=== PATIENT | male | born 1940 | race Caucasian/White ===

== ENCOUNTER 2017-05-13 17:30 | Emergency (ER) | payer OTHER ==
[~2017-05-13] VITALS: Ht 175.3 cm; Wt 85.0 kg
[2017-05-13] MEDS ORDERED: FURO-152 PO (17:34)
[2017-05-13] MEDS ORDERED: METHYLPREDNISOLONE SOD SUCC 125 MG/2 ML VIAL IV STA (18:22)
[2017-05-13] MEDS ORDERED: ASPIRIN 81MG TABLET PO STA (18:22)
[2017-05-13] MEDS ORDERED: IPRATROPIUM BROMIDE (0.02%) 0.5MG/2.5ML NEB HHN STA (18:22)
[2017-05-13] MEDS ORDERED: ALBUTEROL (0.083%) 2.5MG/3ML NEB HHN STA (18:22)
[2017-05-13] MEDS ORDERED: DEXTROSE 50% WATER 50ML SYRINGE IV ONE (18:30)
[2017-05-13 19:32] LABS: HEMATOCRIT. 32.2 % (42.0-52.0); HEMOGLOBIN. 10.7 g/dL (14.0-18.0); MEAN CORPUSCULAR HEMOGLOBIN 32.1 pg (28.0-32.0); MEAN CORPUSCULAR VOLUME 96.7 fL (80.0-94.0); MEAN PLATELET VOLUME 8.2 fl (7.4-10.4); PLATELET 187 x1000/uL (130-400); RED BLOOD CELL COUNT 3.33 mill/uL (4.7-6.1); RED CELL DISTRIBUTION WIDTH 19.3 % (11.6-14.6)
[2017-05-13 19:38] LABS: INR 1.4; PARTIAL THROMBOPLASTIN TIME 36.9 sec (23.4-31.0); PROTHROMBIN TIME 14.4 sec (9.4-11.6)
[2017-05-13 19:47] LABS: CHLORIDE 99 mEq/L (98-107)
[2017-05-13 19:49] LABS: TROPONIN I 0.02 ng/mL (0.00-0.04)
[2017-05-13 19:57] LABS: PLATELET ESTIMATE NORMAL
[2017-05-13 20:03] LABS: CLARITY URINE CLEAR (CLEAR); COLOR URINE YELLOW (YELLOW); KETONES URINE NEGATIVE (NEGATIVE); LEUKOCYTE ESTERASE URINE TRACE (NEGATIVE); NITRITE URINE NEGATIVE (NEGATIVE); OCCULT BLOOD URINE NEGATIVE (NEGATIVE); PH URINE 5.5 (4.5-8.0); PROTEIN URINE NEGATIVE (NEGATIVE); SPECIFIC GRAVITY URINE 1.014 (1.005-1.030); UROBILINOGEN URINE 0.2 E.U./dL (0.2-1.0)
[2017-05-13 22:18] VITALS: BP 102/51
== END 2017-05-13 22:29 | disposition short-term general hospital (02) ==
LOC: ER 17:40 → EDBEDREQ 18:27 → ER 22:29 → CANBEDREQ 22:52
DX: E11.649 Type 2 diabetes mellitus with hypoglycemia without coma (principal); J44.1 Chronic obstructive pulmonary disease with (acute) exacerbation; I11.0 Hypertensive heart disease with heart failure; I50.9 Heart failure, unspecified; M79.671 Pain in right foot; L98.491 Non-pressure chronic ulcer of skin of other sites limited to breakdown of skin; I25.10 Atherosclerotic heart disease of native coronary artery without angina pectoris; Z79.4 Long term (current) use of insulin; Z79.82 Long term (current) use of aspirin; Z95.810 Presence of automatic (implantable) cardiac defibrillator
CPT/HCPCS: 36415; 71045; 73630; 80053; 81003; 82962; 83880; 84484; 85025; 85610; 85730; 87086; 93005; 94644; 96374; 96375; 99285; J2930; J7611